=== PATIENT | male | born 1975 | race Caucasian/White ===

== ENCOUNTER 2022-02-14 05:58 | Emergency (ER) | payer OTHER ==
[~2022-02-14] VITALS: Ht 182.9 cm; Wt 79.4 kg
[~2022-02-14 05:58] MED LIST: BUSPIRONE HCL10 MG PO; MULTI VITAMIN1 EACH PO; PROZAC10 MG PO; TESTOSTERONE CYP MISC
--- OUTSIDE RECORDS SUMMARY | 2022-02-14 06:00 | XMS ---
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 EEmir VISIT COUNT (12 MO.) 1 DOC [facility] TOTAL 1 NOTE: Visits indicate total known visits. ED/UCC VISIT TRACKING (12 MO.) 02/14/2022 05:59 DOC [facility] [place] TYPE: Emergency COMPLAINT: - ABD PAIN INPATIENT VISIT TRACKING (12 MO.) No inpatient visits to display in this time frame [id number]
[2022-02-14] MEDS ORDERED: BUPROPION XL300 MG PO (06:10)
[2022-02-14] MEDS ORDERED: TESTOSTERO200 MG/1 M IM (06:11)
== END 2022-02-14 08:58 | disposition home or self-care (01) ==
LOC: ED 05:58
DX: R10.11 Right upper quadrant pain (principal); R10.31 Right lower quadrant pain; R10.32 Left lower quadrant pain; Z79.899 Other long term (current) drug therapy
CPT/HCPCS: 36415; 74177; 80053; 81001; 83690; 85025; 99284-25; J1885; Q9967

== ENCOUNTER 2022-07-11 16:02 | Emergency (ER) | payer OTHER ==
[~2022-07-11] VITALS: Ht 182.9 cm; Wt 79.4 kg
[~2022-07-11 16:02] MED LIST changes: +BUPROPION XL300 MG PO; +TESTOSTERO200 MG/1 M IM
--- OUTSIDE RECORDS SUMMARY | 2022-07-11 16:04 | XMS ---
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 EEmir VISIT COUNT (12 MO.) 2 DOC Sweet TOTAL 2 NOTE: Visits indicate total known visits. ED/UCC VISIT TRACKING (12 MO.) 07/11/2022 16:03 DOC [facility] [place] TYPE: Emergency COMPLAINT: - POST OP PROBLEM 02/14/2022 05:59 DOC [facility] [place] TYPE: Emergency COMPLAINT: - ABD PAIN DIAGNOSES: - Other long-term (current) drug therapy - Right upper quadrant pain - Left lower quadrant pain - Right lower quadrant pain INPATIENT VISIT TRACKING (12 MO.) No inpatient visits to display in this time frame [id number]
[2022-07-11] MEDS ORDERED: OXYCODONE HCL5 MG PO (16:25)
== END 2022-07-11 18:13 | disposition home or self-care (01) ==
LOC: ED 16:02
DX: R50.82 Postprocedural fever (principal); Z20.822 Contact with and (suspected) exposure to COVID-19; Z90.79 Acquired absence of other genital organ(s)
CPT/HCPCS: 36415; 80053; 81001; 85025; 87502; 99283; C9803; U0003